=== PATIENT | female | born 1940 | race Hispanic/Latino ===

== ENCOUNTER 2018-10-21 09:54 | Inpatient (IN) ==
[2018-10-21] MEDS ORDERED: NARCAN ONE (10:36)
[2018-10-21] MEDS ORDERED: NS 1,000 ML ONE (10:49)
[2018-10-21 12:07] LABS: EOS# 0.05 X1000 (0.0-0.7); EOS% 0.7 % (0.0-10.0); HEMATOCRIT 18.1 % (37.0-47.0); HEMOGLOBIN 5.6 g/dL (12.0-16.0); IMM GRAN# 0.03 X1000 (0.0-0.04); IMM GRAN% 0.4 % (0.0-0.5); LYMPH# 0.75 X1000 (1.2-3.4); LYMPH% 10.2 % (20.5-51.1); MCH 22.6 PG (27-31); MCHC 30.9 g/dL (33-37); MONO# 0.29 X1000 (0.11-0.59); MONO% 3.9 % (1.7-9.3); MPV 9.8 FL (7.4-10.4); NEUT# 6.25 X1000 (1.4-6.5); NEUT% 84.8 % (42.2-75.2); PLT 353 X1000 (130-400); RBC 2.48 XMIL (4.2-5.4); WBC 7.37 X1000 (4.8-10.8)
--- NOTE | 2018-10-21 12:32 | Diag Imaging Result Doc PS360 ---
EXAM: CT HEAD/C-SPINE W/O CONTRAST 10/21/2018 HISTORY: fall, syncope TECHNIQUE: This exam was performed using automated exposure control, adjustment of mA or kV according to patient size, and/or use of iterative reconstruction technique. COMMENT: There is no evidence of mass, shift, abnormal extra-axial fluid collection, or hydrocephalus. There are no previous studies. The calvarium is intact. Cervical spine: There is no evidence of acute fracture or subluxation. There is mild degenerative disc disease at C5-6 and C6-7. The facets are aligned bilaterally. There are calcifications in the carotid arteries and the right brachiocephalic. IMPRESSION: No evidence of acute disease. Electronically signed by Popeye Fishman 10/21/2018 12:30 PM
--- NOTE | 2018-10-21 12:42 | Diag Imaging Result Doc PS360 ---
EXAM: CHEST-PORTABLE INDICATION: syncope TECHNIQUE: One view COMPARISON: None. FINDINGS: There is mild interstitial thickening throughout both lungs that is probably chronic. There is no discrete pleural fluid collection or pneumothorax. The cardiac silhouette appears somewhat prominent and there may be mild pulmonary venous congestion. IMPRESSION: 1.Mild cardiomegaly and questionable mild pulmonary venous congestion. 2.Mild diffuse interstitial thickening that is probably chronic. Electronically signed by Elier Iglesias 10/21/2018 12:40 PM
[2018-10-21 13:02] LABS: URINE SOURCE CLEAN CATCH
[2018-10-21 13:17] LABS: BILIRUBIN URINE NEGATIVE (NEGATIVE); BLOOD URINE SMALL (NEGATIVE); COLOR YELLOW; GLUCOSE URINE 100 mg/dL (NEGATIVE); KETONE URINE NEGATIVE (NEGATIVE); LEUKOCYTES URINE NEGATIVE (NEGATIVE); NITRITE URINE NEGATIVE (NEGATIVE); PROTEIN URINE 600 mg/dL (NEGATIVE); SP GRAVITY URINE 1.011; TURBIDITY URINE HAZY (CLEAR); UROBILINOGEN URINE NORMAL (NORMAL)
[2018-10-21 13:33] LABS: UR AMPHETAMINES QUAL NONE DETECTED (NONE DETECT); UR BARBITUATES QUAL NONE DETECTED (NONE DETECT); UR BENZODIAZEPIN QUAL NONE DETECTED (NONE DETECT); UR CANNABINOIDS QUAL NONE DETECTED (NONE DETECT); UR COCAINE QUAL NONE DETECTED (NONE DETECT); UR EPITHELIAL CELLS >10 /HPF (<10); UR METHADONE QUAL NONE DETECTED (NONE DETECT); UR OPIATES QUAL NONE DETECTED (NONE DETECT); UR OXYCODONE QUAL PRESUMPTIVE POSITIVE (NONE DETECT); UR PCP QUAL NONE DETECTED (NONE DETECT); URINE BACTERIA NEGATIVE /HPF; URINE RBC <10 /HPF (<10)
[2018-10-21 13:44] LABS: AGAP 11; BUN 63 mg/dL (8-22); CHLORIDE 100 mmol/L (98-107); COSMO 272; CREATININE 5.7 mg/dL (0.5-0.9); ESTIMATED GFR 7; GLUCOSE 109 mg/dL (70-104); POTASSIUM 5.9 mmol/L (3.5-5.1); SODIUM 126 mmol/L (136-145); TCO2 15 mmol/L (25-35)
[2018-10-21 13:45] LABS: ALB/GLOB RATIO 0.9; ALBUMIN 2.1 g/dL (3.5-5.0); ALKALINE PHOSPHATASE 134 U/L (32-104); AMYLASE 54 U/L (20-200); GOT 25 U/L (10-30); GPT 18 U/L (10-36); LIPASE 131 U/L (13-60); TOTAL BILIRUBIN < 0.15 mg/dL (0.20-1.00); TOTAL PROTEIN 4.4 g/dL (6.3-8.3)
--- NOTE | 2018-10-21 13:48 | ED EKG INTERP ---
This chart was entered by Marlen Iglesias Scribe, acting as scribe for Aditi Mack MD. EKG Interpretation - EKG Time of EKG reading by physician:: 10:20 EKG Read and Signed by:: Aditi Mack EKG Interpretation (*Must complete 3 of following elements*): Abnormal Rate: 52 Rhythm: NSR Bradycardia CO Interval: normal ST Wave: non-specific ST changes Attestation - Physician/ RANJAN Attestation The physician spent face to face time with patient:: Yes Advanced Practice Provider documentation review:: Supervising physician onsite and consulted in the evaluation and care of this patient. The physician did have a face to face encounter with the patient. This chart was documented by the indicated scribe, (Marlen Iglesias Scribe) and accurately reflects the services I performed and decisions made by me, Aditi Mack MD, as attested by the provider's signature.
--- NOTE | 2018-10-21 13:48 | PROVIDER DOCUMENTATION ---
This chart was entered by Marlen Iglesias Scribe, acting as scribe for Aditi Mack MD. HPI-General Adult - General Chief Complaint: Fall Stated Complaint: FALL/HOME HURTS ALL OVER Time Seen by Provider: 10/21/18 10:25 Source: patient Allergies/Adverse Reactions: Patient Allergies Allergy/AdvReac Type Severity Reaction Status Date / Time No Known Allergies Allergy Verified 10/21/18 11:03 Home Medications: Home Medication List Medication Instructions Recorded Confirmed Last Taken Type Cephalexin 500 mg PO TID 10/21/18 10/21/18 10/21/18 07:40 History Labetalol HCl 200 mg PO BID 10/21/18 10/21/18 10/21/18 08:00 History Minoxidil 5 mg PO BID 10/21/18 10/21/18 10/20/18 08:00 History Oxycodone HCl 5 mg PO Q6H PRN PRN 10/21/18 10/21/18 10/20/18 20:00 History Ranitidine [Zantac] 150 mg PO BID 10/21/18 10/21/18 Unknown History - History of Present Illness -Gen Adult Nature of Presenting Problems: 77 yof presents to ed w/family w/ co fell today while trying to get ready to go to drAmy office. pt has been dealing w/swelling all over body and sob. pt is complaining her head hurts and has a scab on left arm and bruising on left arm and above elbow. pt has been on new medications since thursday (lasix, ranitidine , minodixil, cephalexin, labetalol, and oxycodone. pts blood pressure and heart rate are low coming into ed. Location of Pain/Injury: reports: head, upper extremity (left forearm) Pain Radiation: reports: no radiation Quality of Pain: reports: aching Severity: reports: mild Onset/Duration: reports: this morning Timing: reports: still present Context/Activities at Onset: reports: light activity Modifying Factors: improves with: nothing Associated Symptoms: reports: diarrhea, nausea, shortness of breath, vomiting, weakness Similar Symptoms Previously?: Yes Recently seen or treated by another doctor?: No Review of Systems - Adult - REVIEW OF SYSTEMS - ADULT ROS:: ROS per family Constitutional: reports: no symptoms reported Eyes: reports: no symptoms reported Ears, Nose, Mouth & Throat: reports: no symptoms reported Cardiovascular: reports: no symptoms reported Respiratory: reports: see HPI, shortness of breath. denies: cough, dyspnea on exertion, excessive sputum production Gastrointestinal: reports: diarrhea, nausea, vomiting. denies: abdominal pain Genitourinary: reports: no symptoms reported Musculoskeletal: reports: no symptoms reported Integumentary: reports: see HPI, other (skin tear on left arm) Neurological: reports: no symptoms reported Psychiatric: reports: no symptoms reported Endocrine: reports: no symptoms reported Hematologic/Lymphatic: reports: see HPI, other (brusing left arm) Allergic/Immunologic: reports: no symptoms reported All Other Systems: Reviewed and Negative Past History - Adult - PAST MEDICAL HISTORY-ADULT Review of Records: reports: Old Records Reviewed, Nursing Assessment Review, Medications Reviewed, Social history reviewed & non-contributory. Major Childhood Illnesses: reports: denies history Cardiovascular: reports: denies history Respiratory: reports: denies history Gastrointestinal: reports: denies history Obstetrical/Gynecological: reports: denies history Genitourinary: reports: denies history Musculoskeletal: reports: denies history Neurological: reports: denies history Endocrine/Immune: reports: denies history Other Conditions: reports: denies history - PRIOR SURGERIES/PROCEDURES Surgical/Procedure History: reports: reviewed, not pertinent - IMMUNIZATION STATUS Childhood Immunizations: See Nurse Assessment Flu Vaccine: See Nurse Assessment - FAMILY HISTORY Family History: reviewed, not pertinent - SOCIAL HISTORY Smoking: denies Substance Use: denies Physical Exam-General - PHYSICAL EXAM-ADULT Initial Vital Signs Reviewed: Yes - CONSTITUTIONAL General Appearance: mild distress, slow to respond, other (moaning) - EYES Eyes: PERRL/EOMI - HEAD, EARS, NOSE, MOUTH & THROAT HENMT: normocephalic/atraumatic, moist mucous membranes, normal ENT inspection - NECK Neck: non-tender, full range of motion, supple - RESPIRATORY Respiratory: chest non-tender, lungs clear, normal breath sounds - CARDIOVASCULAR Cardiovascular: no edema, no murmur, bradycardia. negative: regular rate, rhythm, tachycardia, diastolic murmur, systolic murmur - GASTROINTESTINAL (ABDOMEN) Abdominal Exam: normal bowel sounds, soft, tenderness (mild generalized) - LYMPHATIC Lymphatic: no adenopathy - MUSCULOSKELETAL Extremity: normal range of motion, non-tender, other (skin tear to left forearm. 2 + pitting edema to bilateral lower extremities) - SKIN Integumentary: normal color, normal turgor, warm/dry, ecchymosis (left arm), other (skin tear to left forearm.). negative: blanching, cyanosis, rash - NEUROLOGIC Neurologic: other (unable to assess per patient's condition) - PSYCHIATRIC Psych/Mental Status: other (slow to respond) Progress - PLAN OF CARE/RESULTS Progress/Plan/Lab Results: Vital Signs - 8 hr 10/21/18 10:03 Temperature 97.7 F Pulse Rate 49 L Respiratory Rate 20 Blood Pressure 61/26 O2 Sat by Pulse Oximetry 97 Orders Category Date Time Status 0.9% Sodium Chloride Inj [Ns] 1,000 ml Med 10/21/18 10:49 Discontinued .ROUTE As Directed Naloxone [Narcan] Med 10/21/18 10:36 Discontinued 0.4 mg .ROUTE .STK-MED ONE Laboratory Tests 10/21/18 10/21/18 10/21/18 10:25 10:25 10:25 WBC 7.37 RBC 2.48 L Hgb 5.6 L* Hct 18.1 L MCV 73.0 L MCH 22.6 L MCHC 30.9 L RDW Std Deviation 17.0 H Plt Count 353 MPV 9.8 Immature Gran % (Auto) 0.4 Neut % (Auto) 84.8 H Lymph % (Auto) 10.2 L Dickson % (Auto) 3.9 Eos % (Auto) 0.7 Baso % (Auto) 0.0 Immature Gran # (Auto) 0.03 Neut # (Auto) 6.25 Lymph # (Auto) 0.75 L Dickson # (Auto) 0.29 Eos # (Auto) 0.05 Baso # (Auto) 0.00 Sodium 126 L Potassium 5.9 H Chloride 100 Carbon Dioxide 15 L Anion Gap 11 BUN 63 H Creatinine 5.7 H Estimated GFR/1.73 m2 7 BUN/Creatinine Ratio 11 Glucose 109 H Calculated Osmolality 272 Total Bilirubin < 0.15 L AST 25 ALT 18 Alkaline Phosphatase 134 H Troponin T Gly-Z-Xhchyecjlyr Pept 70033 H Total Protein 4.4 L Albumin 2.1 L Globulin 2.3 Albumin/Globulin Ratio 0.9 Amylase 54 Lipase 131 H Urine Source Urine Color Urine Turbidity Urine pH Ur Specific [place] Urine Protein Ur Glucose (Stick) Ur Ketones (Stick) Urine Blood Urine Nitrite Urine Bilirubin Urobilinogen Dipstick Urine Leukocytes Urine WBC (Auto) Urine RBC (Auto) U Epithel Cells (Auto) Urine Bacteria (Auto) Urine Opiates Screen Ur Oxycodone Screen Ur Methadone, Qual Ur Barbiturates Screen Ur Phencyclidine Scrn Ur Amphetamines Screen U Benzodiazepines Scrn Urine Cocaine Screen U Cannabinoids Screen 10/21/18 10/21/18 10/21/18 10:25 12:55 12:55 WBC RBC Hgb Hct MCV MCH MCHC RDW Std Deviation Plt Count MPV Immature Gran % (Auto) Neut % (Auto) Lymph % (Auto) Dickson % (Auto) Eos % (Auto) Baso % (Auto) Immature Gran # (Auto) Neut # (Auto) Lymph # (Auto) Dickson # (Auto) Eos # (Auto) Baso # (Auto) Sodium Potassium Chloride Carbon Dioxide Anion Gap BUN Creatinine Estimated GFR/1.73 m2 BUN/Creatinine Ratio Glucose Calculated Osmolality Total Bilirubin AST ALT Alkaline Phosphatase Troponin T < 0.010 Xve-P-Hepqaahjlnh Pept Total Protein Albumin Globulin Albumin/Globulin Ratio Amylase Lipase Urine Source CLEAN CATCH Urine Color YELLOW Urine Turbidity HAZY Urine pH 6.0 Ur Specific [place] 1.011 Urine Protein 600 A Ur Glucose (Stick) 100 A Ur Ketones (Stick) NEGATIVE Urine Blood SMALL A Urine Nitrite NEGATIVE Urine Bilirubin NEGATIVE Urobilinogen Dipstick NORMAL Urine Leukocytes NEGATIVE Urine WBC (Auto) 10-20 A Urine RBC (Auto) <10 U Epithel Cells (Auto) >10 A Urine Bacteria (Auto) NEGATIVE Urine Opiates Screen NONE DETECTED Ur Oxycodone Screen PRESUMPTIVE POSITIVE A Ur Methadone, Qual NONE DETECTED Ur Barbiturates Screen NONE DETECTED Ur Phencyclidine Scrn NONE DETECTED Ur Amphetamines Screen NONE DETECTED U Benzodiazepines Scrn NONE DETECTED Urine Cocaine Screen NONE DETECTED U Cannabinoids Screen NONE DETECTED Patient with multiple lab abnormalities. She was initially hypotensive and given some narcan as she just started Oxy, labetalol, and lasix. She was given IV bolus which helped her BP and it continued to improve. She also has a new Cr to 5.7, negative troponin, hypocalcemia, acute anemia requiring transfusion and elevated BNP to 14k. She has some hyponatremia and hyperkalemia. I spoke to Dr Castellanos who came down to see her and he will see her in consult. He wanted her to be transfused first before we correct a lot of her electrolyte abnormalities. He stated he will order Lasix for between the units. Spoke to hospitalist who accepted patient for admission. They will place further orders. Result Diagrams: 10/21/18 14:25 10/21/18 10:25 - XRAY 1 XRAY Study: Chest Impression: See EMR Report ( EXAM: CHEST-PORTABLE INDICATION: syncope TECHNIQUE: One view COMPARISON: None. FINDINGS: There is mild interstitial thickening throughout both lungs that is probably chronic. There is no discrete pleural fluid collection or pneumothorax. The cardiac silhouette appears somewhat prominent and there may be mild pulmonary venous congestion. IMPRESSION: 1.Mild cardiomegaly and questionable mild pulmonary venous congestion. 2.Mild diffuse interstitial thickening that is probably chronic. Electronically signed by Elier Iglesias 10/21/2018 12:40 PM 10/21/18 1240 Interpreting Physician: Elier Iglesias MD Dictated Date/Time: 10/21/18 1237 cc: Aditi Mack MD; Wei Davenport MD) - CT/MRI 1 CT Study: Cervical Spine, Head Impression: See EMR Report ( EXAM: CT HEAD/C-SPINE W/O CONTRAST 10/21/2018 HISTORY: fall, syncope TECHNIQUE: This exam was performed using automated exposure control, adjustment of mA or kV according to patient size, and/or use of iterative reconstruction technique. COMMENT: There is no evidence of mass, shift, abnormal extra-axial fluid collection, or hydrocephalus. There are no previous studies. The calvarium is intact. Cervical spine: There is no evidence of acute fracture or subluxation. There is mild degenerative disc disease at C5-6 and C6-7. The facets are aligned bilaterally. There are calcifications in the carotid arteries and the right brachiocephalic. IMPRESSION: No evidence of acute disease. Electronically signed by Popeye Fishman 10/21/2018 12:30 PM 10/21/18 1230 Interpreting Physician: Popeye Fishman MD Dictated Date/Time: 10/21/18 1226 cc: Aditi Mack MD ; Wei Davenport MD) - CONSULTS/PCP/HOSPITALIST Notification #1 *Consult/PCP/Hospitalist*: Gladish Time Discussed: 14:42 Reason/Comments: Discussed abnormal lab findings Consult Disposition: Will see in ED #2 Consult: Komal Time Discussed: 15:34 Reason/Comments: consulted with Komal about patient Consult Disposition: Will see in ED, Admit Departure - Departure Date of Disposition Decision: 10/21/18 Time of Disposition Decision: 15:34 DIAGNOSIS: Syncope, CHF (congestive heart failure), GUY (acute kidney injury), Hypocalcemia, Acute anemia, Weakness, Hyponatremia, Hyperkalemia, Nausea vomiting and diarrhea Disposition: ADMITTED INPATIENT 09 Certified Medical Emergency: Emergent Condition: Stable - Critical Care Note This patient required my direct & personal management of CC.: Yes Total Time (mins): 74 Critical Care Statement: This patient required my direct personal management to treat or rule out processes, the absence of which, could potentiallly result in sudden, clinically significant life or limb threatening deterioration. Attestation - Physician/ RANJAN Attestation Patient care was provided by Advanced Practice Provider:: No The physician spent face to face time with patient:: Yes Advanced Practice Provider documentation review:: Supervising physician onsite and consulted in the evaluation and care of this patient. The physician did have a face to face encounter with the patient. This chart was documented by the indicated scribe, (Marlen Iglesias, Dung) and accurately reflects the services I performed and decisions made by me, Aditi Mack MD, as attested by the provider's signature.
[2018-10-21 14:00] LABS: URINE SMALL ROUND CELLS NONE SEEN
--- NOTE | 2018-10-21 14:00 | EKG Report ---
Test Performed on : 10/21/2018 10:16:22 AM Test Reason : ED. NO EKG ORDER FOR MUSE Blood Pressure : / mmHG Vent. Rate : 052 BPM Atrial Rate : 052 BPM P-R Int : 172 ms QRS Dur : 078 ms QT Int : 488 ms P-R-T Axes : 014 036 043 degrees QTc Int : 453 ms Sinus bradycardia. Nonspecific T wave abnormality Abnormal ECG No previous ECGs available Unconfirmed Result
[2018-10-21 15:13] LABS: HEMATOCRIT 21.3 % (37.0-47.0); HEMOGLOBIN 6.7 g/dL (12.0-16.0)
[2018-10-21 15:21] LABS: IRON SATURATION 8 %; TIBC 273 ug/dL; TOTAL IRON 21 ug/dL (49-151); UNBOUND IRON 252 ug/dL (112-346)
[2018-10-21 15:25] LABS: INR 0.87; PROTIME 12.6 Seconds (11.0-16.0)
[2018-10-21] MEDS ORDERED: SODIUM BICARBONATE 8.4% IV PUSH ONE (15:39)
[2018-10-21] MEDS: LASIX IV SCH (15:50)
[2018-10-21] MEDS: VELTASSA PO SCH ×2 (15:55→23:45)
--- NOTE | 2018-10-21 17:09 | NEPHROLOGY CONSULTATION ---
DATE: 10/21/2018 REASON FOR CONSULTATION: Chronic kidney disease, hyperkalemia, metabolic acidosis. HISTORY OF PRESENT ILLNESS: Ms. Carlson is a 77-year-old woman who has been seen on one occasion in the past by Dr. Cantu in our office. She has hypertension that has been poorly managed and resultant chronic kidney disease. The only laboratory data in our system is from 08/13/2018, at which time her creatinine was 3.8, and hemoglobin was 8.2. Blood pressure was in target at that time. She did not show for her initial new patient visit but was seen on the . She has been to the doctor daily at a local urgent care facility because of falling and weakness. She has been given medication, but they cannot really define what was given. She did receive antibiotics and oxycodone. Today she fell trying to get out of the car. She did not lose consciousness. No dizziness or other new symptoms. Because of this severe weakness, she came to the emergency room where she was evaluated. Her evaluation in the emergency room found her significantly hypotensive. Her initial blood pressure was 61/26. Repeat 113/46. She was evaluated using laboratory data which disclosed potassium of 5.9, creatinine of 5.7, and hemoglobin of 5.6. On these bases, she is being admitted to the hospital. PAST MEDICAL HISTORY: As above. HOME MEDICATIONS: Include cephalexin, labetalol, minoxidil, oxycodone, ranitidine. ALLERGIES: None listed. Social history, family history, and review of systems do not add further information. PHYSICAL EXAMINATION: Vital Signs: Blood pressure 113/46, heart rate 73, respirations 14, afebrile. General: No acute distress. Skin: Warm and dry. Eyes: Conjunctivae are pink. Neck: Neck veins not appreciated. Mouth: Oropharynx is dry. Heart: Regular. Lungs: Equal. No crackles. Abdomen: Soft, nontender. Bowel sounds present. Extremities: Have 1+ edema. No clubbing or cyanosis. IMPRESSION: Chronic kidney disease, stage 5, with profound anemia, hypotension, hyperkalemia, metabolic acidosis, and volume overload. I have ordered furosemide 200 mg IV q.12 h. for 3 doses and 2 units packed red blood cells. I have also ordered Veltassa to address her potassium and 1 amp of sodium bicarbonate. I will have Echo come and do quick check to rule out pericardial effusion, as she is taking minoxidil and has uremia and has a somewhat enlarged heart shadow on her chest x-ray. Further recommendations to follow. cc: Marques Castellanos MD
--- NOTE | 2018-10-21 18:04 | HISTORY AND PHYSICAL ---
CHIEF COMPLAINT: Syncope. PRIMARY CARE PHYSICIAN: Wei Davenport MD HISTORY OF PRESENT ILLNESS: This is a 77-year-old female, who was brought to the emergency department because at home she passed out. Patient reports that 3 months ago she was having problems controlling hypertension so her primary care doctor order some blood tests where they found out for first time an elevated creatinine so she was supposed to be seen by field technician Dr. Cantu in a couple weeks. She went to see her doctor last time last Thursday because she was having some problems with elevated blood pressure, some sore throat, and some neck pain so she was given cephalexin, labetalol, minoxidil, oxycodone, and ranitidine. Today she reports feeling a little bit dizzy. They were about to go in to see her primary care doctor when she passed out at home. She reports that she was feeling dizzy and she did not remember anything and according to family who was at bedside, she was unconscious for less than a minute. The patient was complaining of headaches so she was given oxycodone for that. The patient was feeling progressively weaker. Here, upon ER evaluation, she was found to be hypotensive with systolic blood pressure in the range of 60. Her hemoglobin was very low at 5.6 so she is going to be admitted for further evaluation and treatment. PAST MEDICAL HISTORY: 1. Uncontrolled hypertension. 2. Recent chronic kidney disease, diagnosed 3 months ago. ALLERGIES: No known drug allergies. PAST SURGICAL HISTORY: None. FAMILY HISTORY: Noncontributory. REVIEW OF SYSTEMS: Eleven systems were reviewed, and all symptoms are related to H P. PHYSICAL EXAMINATION: VITAL SIGNS: Temperature 97.7 degrees, heart rate 49, respiratory rate 20, blood pressure 161/26 and that was on admission, but upon my examination, was 125/62, O2 saturation 97 % on room air. GENERAL: This is a chronically ill-looking 77-year-old female, lying in bed, in no acute distress. HEENT: Head is normocephalic and atraumatic. Pupils equally round and reactive to light and accommodation. Anicteric sclerae. [place] conjunctivae. Mucous membranes dry. NECK: No JVD noted. No carotid bruits. No lymphadenopathy. No thyromegaly. CARDIOVASCULAR: S1, S2 heard. No murmurs, gallops, or rubs. Regular rate and rhythm. RESPIRATORY: Clear bilaterally to auscultation. No work of breathing or using accessory muscles. ABDOMEN: Soft, nontender to palpation. There is an umbilical hernia noted, not incarcerated. Bowel sounds present. No organomegaly. EXTREMITIES: No clubbing, cyanosis, or edema. Peripheral pulses present in both legs. NEUROLOGICAL: The patient is alert and oriented x3. Moves 4 extremities. LABORATORY DATA: White cell count 5.37, hemoglobin of 5.6 and was repeated at 4 :25 and it was 6.7. Sodium 136, potassium 5.9, chloride 100, bicarbonate 15, BUN 63, creatinine 5.7, calcium 7.0. Iron 21. Total bilirubin 0.15. Negative troponin. UDS positive for oxycodone. ASSESSMENT AND PLAN: 1. Syncope, multifactorial, and severe anemia of 5.6 plus hypotension plays an important role in this problem. At this point, for suspicion for GI bleeding, we are going to consult Gastroenterology. We are going to check a CT abdomen and pelvis, and we will go from there. 2. Anemia of chronic disease. We are going to check CBC daily. We have done iron studies that are still pending at time of my dictation. 3. Chronic kidney disease. The patient has been diagnosed recently with chronic kidney disease. Those labs had been done 3 months ago. Patient reports she had not had any blood tests in years, at least 12, while she is living here. We are going to consult Dr. Castellanos, and we know that this patient is having metabolic acidosis secondary to chronic kidney disease. We will leave to him the management of that condition. 4. Because this patient has uncontrolled hypertension and she was told that she had a big heart, we are going to check an echocardiogram. We will go from there. Further recommendations to follow according to the clinical situation of the patient. cc: Bright Pena MD MTDD
[2018-10-21] MEDS ORDERED: NS 250 ML ONE (18:32)
--- NOTE | 2018-10-21 19:28 | Diag Imaging Result Doc PS360 ---
EXAM: US RENAL 2 (RETROPER) COMPLETE HISTORY: ckd TECHNIQUE: Renal ultrasound COMPARISON: None. FINDINGS: The right kidney measures only 7.1 x 4.3 x 3.6 cm. There is increased renal echotexture and cortical thickness. No stone or hydronephrosis. No renal mass. The left kidney is not identified. There is a Santos in the urinary bladder. There appears to be free fluid in the lower abdomen. IMPRESSION: Small hyperechoic right kidney consistent with medical renal disease. Electronically signed by Alfonso Mason 10/21/2018 7:26 PM
[2018-10-21] MEDS: PROTONIX IV SCH (19:45)
--- NOTE | 2018-10-21 21:39 | Diag Imaging Result Doc PS360 ---
EXAM: CT THORAX/ABD/PELVIS W/O CON HISTORY: syncope, suspected GI bleeding, ckd TECHNIQUE: 1. CT chest without contrast 2. CT abdomen and pelvis without contrast COMPARISON: None. FINDINGS: Chest: There is a small to moderate-sized left-sided pleural effusion measuring 3.1 cm posteriorly and inferiorly in the midline and a smaller right effusion measuring 2.8 cm. No cardiomegaly. No thoracic aortic aneurysm. No enlarged lymph nodes. There is basilar atelectasis. No consolidation. No bronchiectasis. Abdomen and pelvis: No hepatic normality identified on this noncontrasted exam. No calcified gallstones or adjacent inflammation. Spleen is small. Normal pancreas and adrenal glands. The kidneys are mildly atrophic. No renal stones. No hydronephrosis. No bowel obstruction. No abscess. There is a Santos catheter in urinary bladder. A small to moderate amount of free fluid in the lower abdomen and pelvis. Prominent body wall edema. Fluid fills a periumbilical hernia. The uterus is small. IMPRESSION: Chest: Small pleural effusions with basilar atelectasis Abdomen and pelvis: Small amount of ascites with body wall edema This exam was performed using automated exposure control, adjustment of mA or kV according to patient size, and/or use of iterative reconstruction technique. Electronically signed by Alfonso Mason 10/21/2018 9:37 PM
--- NOTE | 2018-10-21 22:33 | ECHO REPORT ---
ORDER DATE: 10/21/2018 SUMMARY: 1. Limited 2-dimensional echocardiography study performed to evaluate for pericardial effusion. Acoustic window quality is fair. 2. The aortic valve is trileaflet and opens normally on 2-dimensional images. Mitral and tricuspid valves are without evidence of structural abnormality. Pulmonic valve is not well- demonstrated. The aortic root is normal size. 3. Normal left ventricular dimensions suggested. The estimated left ventricular ejection fraction appears to be at least 60%. No regional wall motion abnormality is evident. Left atrium, right atrium, right ventricle are grossly normal in size, with grossly preserved right ventricular systolic function. 4. No pericardial effusion. 5. Inferior vena cava not well-demonstrated. cc: MD Marques Resendiz MD
[2018-10-22] MEDS: PROTONIX IV SCH ×2 (06:00→18:06)
[2018-10-22 06:22] LABS: EOS# 0.03 X1000 (0.0-0.7); EOS% 0.4 % (0.0-10.0); LYMPH# 0.63 X1000 (1.2-3.4); LYMPH% 8.3 % (20.5-51.1); MCH 24.7 PG (27-31); MCHC 32.1 g/dL (33-37); MCV 76.7 FL (81-99); MONO# 0.41 X1000 (0.11-0.59); MONO% 5.4 % (1.7-9.3); NEUT# 6.52 X1000 (1.4-6.5); NEUT% 85.9 % (42.2-75.2); PLT 338 X1000 (130-400); RBC 3.65 XMIL (4.2-5.4); RDW 19.3 % (11.5-14.5); WBC 7.59 X1000 (4.8-10.8)
[2018-10-22] MEDS: LASIX IV SCH ×2 (06:30→15:54)
[2018-10-22 06:43] LABS: CALCIUM 7.4 mg/dL (8.8-10.2); CREATININE 6.2 mg/dL (0.5-0.9)
[2018-10-22] MEDS ORDERED: MORPHINE IV PRN (07:47)
[2018-10-22] MEDS: VELTASSA PO SCH (07:55)
[2018-10-22] MEDS ORDERED: VENOFER 500 MG in NS 250 ML IV ONE (08:25)
--- NOTE | 2018-10-22 14:29 | ECHO REPORT ---
ORDER DATE: 10/21/2018 ECHOCARDIOGRAPHIC MEASUREMENTS: 1. Interventricular septum 1.3. 2. Left ventricular posterior wall 1.3. 3. Diastolic diameter 4.2. 4. Left ventricular systolic diameter 2.9. 5. Left atrium 4.2. 6. Aorta 2.7. SUMMARY: 1. Aortic valve leaflets are trileaflet. 2. Mitral valve was normal. 3. Tricuspid valve was normal. 4. Pulmonic valve was normal. There is mild pulmonary regurgitation. 5. Mild tricuspid regurgitation. Peak velocity across the tricuspid valve was 2.6 m/sec. 6. Pulmonary artery systolic pressure 37 to 40 mmHg. 7. There is mild left atrial enlargement. 8. There is no aortic stenosis. 9. Aortic valve leaflets are trileaflet. 10. There is mild aortic regurgitation 11. There is mild mitral regurgitation. 12. Normal left ventricular cavity size. There is mild concentric left ventricular hypertrophy. Estimated ejection fraction of 60% to 65%. 13. There is no pericardial effusion or obvious intracardiac mass or thrombus seen. cc: MD Bright Cid MD
[2018-10-22] MEDS ORDERED: DILAUDID IV PRN (15:20)
--- NOTE | 2018-10-22 16:52 | PROGRESS NOTE ---
DATE: 10/22/2018 SUBJECTIVE: The patient reports severe abdominal pain around the umbilical hernia she had. She reports that even with morphine the pain is really difficult to control. Denies any other complaints. OBJECTIVE: Vital Signs: Temperature 98.0 degrees, heart rate 96, respiratory rate 18, blood pressure is 150/76, O2 saturation is 99% 2 L nasal cannula. General: This is a chronically ill- looking 77-year-old [place] female lying in bed in no acute distress. HEENT: Head is normocephalic and atraumatic. Poor dentition. Mucous membranes dry. Pale conjunctivae. Neck: No JVD noted. No carotid bruits. No lymphadenopathy. No thyromegaly. Cardiovascular: S1 and S2 heard. No murmurs, gallops or rubs. Regular rate and rhythm. Respiratory: Minimal crackles in both pulmonary bases. The patient is not using any accessory muscles or having work of breathing. Abdomen: The abdomen is very tender to palpation around the umbilical area. There is an umbilical hernia with tenderness to palpation all over the abdomen, but mostly around the hernia. There was a bulging lump in the abdomen compatible with hernia that we tried to move back into place, but we were not able to. No signs of peritoneal irritation though. Extremities: Less swelling in both lower extremities. Neurological: The patient is alert and oriented x3. Moves all 4 extremities. LABORATORY DATA: White cell count 7.59, hemoglobin 9.0, hematocrit 28.0, platelets 338,000. Sodium 132, creatinine 6.2, calcium 7.4. ASSESSMENT AND PLAN: 1. Syncope, multifactorial. That has been secondary to severe anemia at 5.6 plus hypotension. At this point the patient is much better, blood pressure is under control. After we have transfused 2 units of blood the hemoglobin has come up to 9.0. At this point we will continue to monitor this patient closely. 2. Chronic kidney disease stage 5. Dr. Castellanos has evaluated this patient. Also we had ordered at admission a renal ultrasound which indicates signs of medical renal disease because the right kidney is small hyperechoic. We have talked with Dr. Castellanos and he thinks that with this chronic kidney disease stage 5 she may need dialysis down the road. She is not a candidate now, but she will eventually. We informed the patient about it and without any medical insurance it is going to be very difficult for the patient to obtain the dialysis she needs. At this point as we mentioned before, we will continue with medical treatment. She is not a candidate for dialysis yet. We will continue to monitor. 3. Anemia of chronic disease. Much better after 2 units of blood transfusion, the hemoglobin is 9.0. We will continue to monitor. 4. Possible incarcerated umbilical hernia. The patient started complaining from yesterday with severe abdominal pain in the umbilical area. The patient was supposed to be seen by Dr. Rivas in the office for this condition, but I think considering that I am not able to move back the hernia, and worsening abdominal pain suspicious for incarcerated hernia, we will consult General Surgery. We will go from there. 5. Uncontrolled hypertension. Blood pressure now is under control. The patient is not on intravenous fluids, actually the patient is on furosemide and we will continue with the same management. We will adjust the medications accordingly. 6. Disposition. We will continue to monitor this patient closely. cc: Bright Pena MD
--- NOTE | 2018-10-22 17:17 | NEPHROLOGY PROGRESS NOTE ---
DATE: 10/22/2018 SUBJECTIVE: She is lying in bed. She states she feels better. No shortness of breath. OBJECTIVE: Vital Signs: Blood pressure 141/59, heart rate 84, respirations 14. Afebrile. Intake 1.7 L. Output 200 mL. General: No acute distress. Skin: Warm and dry. Neck: Neck veins are not visible. Heart: Regular. No gallops. Lungs: Equal. No crackles. Abdomen: Soft, nontender. Bowel sounds present. Extremities: With minimal edema. No clubbing or cyanosis. IMPRESSION: Chronic kidney disease stage 5. No improvement. Her BUN is 57. She has no absolute indications for dialysis at this time. From our perspective, though she would likely benefit from chronic dialysis, we do not have a facility where we can refer an undocumented patient. Our recommendation would be for her to return [place] in order to receive chronic care for this chronic condition. I discussed this with Dr. Mosqueda, who will in turn communicate the information to the patient in her [place] language. I recommended sodium bicarbonate 1300 mg b.i.d. She will receive her last dose of Veltassa this morning. She has been treated with a transfusion, and her hemoglobin is in a safe range at 9.0 today. cc: Marques Castellanos MD
--- NOTE | 2018-10-22 18:03 | CONSULTATION ---
DATE OF CONSULTATION: 10/22/2018 REASON FOR CONSULTATION: Severe anemia. HISTORY OF PRESENT ILLNESS: This is a 77-year-old female. Information is obtained from the granddaughter, who was at the bedside. The patient does not speak [place]. Granddaughter speaks enough [place] to understand and help with review of systems. Most of the information is obtained from the chart. Apparently, the patient has had some recent workup for kidney issues. She had been seen by Nephrology one time in their office. She had an initial workup in August that showed a creatinine of 3.8, and a hemoglobin of 8.2. The patient has had some increasing falls and weakness, along with dizziness and lightheadedness, and apparently had a syncopal episode. She was brought in to the emergency room for evaluation, was found to be hypotensive, and also severely anemic. Hemoglobin and hematocrit on admission were 5.6, and 18.1. MCV 73.0. Potassium was 5.9, BUN 63, creatinine 5.7. She has reported some abdominal pain. Per granddaughter's translation, she has had an episode of vomiting at times. She had reported cough, with production of phlegm. She denies reflux or heartburn or dysphagia, and is not on any stomach medications. She had apparently had evaluation for an umbilical hernia, and had workup for possible surgery, which had to be postponed. Patient denied any visible blood in the stool or black stools. No reported constipation or diarrhea. She has never had an EGD or colonoscopy, per her report. PAST MEDICAL HISTORY: Hypertension, recently diagnosed kidney disease. She had seen Dr. Cantu for a workup. PAST SURGICAL HISTORY: None reported. ALLERGIES: No known drug allergies. MEDICATIONS: Cephalexin 500 mg 3 times a day, labetalol 200 mg twice a day, minoxidil 5 mg twice a day, oxycodone 5 mg every 6 hours as needed, Zantac 150 mg twice a day. REVIEW OF SYSTEMS: Per history of present illness. Information is obtained from the chart, and from about the granddaughter, who is at the bedside, and speaks adequate [place]. PHYSICAL EXAMINATION: Vital Signs: Temperature 98.0 degrees, pulse 91, respirations 16, blood pressure 150/76. General: Patient is awake and alert. She is in no acute distress. HEENT: Normocephalic, atraumatic. Pupils equal, round, reactive to light. Sclerae nonicteric. Cardiovascular: Regular rate and rhythm. Respiratory: Lung sounds essentially clear bilaterally. Abdomen: Soft. She has an umbilical hernia is noted. I believe she has had evaluation for surgery when appropriate. Extremities: No lower extremity edema noted. Pulses present bilaterally. Neurologically: Cranial nerves 2-12 grossly intact. Patient is awake, alert, oriented to person, place, and time. DIAGNOSTIC RESULTS: Laboratory: Hematology: Hemoglobin and hematocrit on admission were 5.6 and 18.1. The patient has had a blood transfusion and iron infusion. Her hemoglobin and hematocrit now are 9.0 and 28.0. MCV 76.7, platelets 338,000. Coagulation: Pro time 12.6 , INR 0.87. Chemistry: Sodium 132, potassium 5.0, chloride 103, CO2 15, BUN 57, creatinine 6.2, glucose 88. Iron 21, TIBC 273, percent saturation 8. Transferrin 190. Ferritin 18. Total bilirubin less than 0.15. AST 25, ALT 18, alkaline phosphatase 134. Vitamin B 12, 430. Folate 10.6. IMAGING STUDIES: Renal ultrasound showed small hyperechoic right kidney, consistent with medical renal disease. Abdominal pelvis CT scan without contrast showed small pleural effusions, with basilar atelectasis, small amount of ascites, with body wall edema. Head and cervical spine CT showed no evidence of acute disease. ASSESSMENT: 1. Syncopal episode. 2. Severe anemia. 3. Newly-diagnosed chronic kidney disease. Has had evaluation by Dr. Cantu. 4. Hypertension. PLAN: Continue to monitor hemoglobin and hematocrit. Transfuse further packed red blood cells as needed. Monitor for any signs of active bleeding. Once patient is stable enough and has had blood transfusions, and when appropriate, we will proceed with GI evaluation. Further plans will be made according to findings. Dr. Ramey has also seen and examined the patient. Will continue to follow. Further plans to be made as needed. Thank you for this consultation. Dictated by KAREN Dumont for Dony Ramey MD cc: KAREN hCerry MD [facility]
[2018-10-22] MEDS: ZOFRAN IV PRN (18:06)
[2018-10-23] MEDS: PROTONIX IV SCH ×2 (05:07→18:16)
[2018-10-23] MEDS: SODIUM CHLORIDE 0.9% INJ SCH (05:07)
[2018-10-23 07:20] LABS: EOS# 0.01 X1000 (0.0-0.7); EOS% 0.1 % (0.0-10.0); HEMATOCRIT 29.5 % (37.0-47.0); HEMOGLOBIN 9.6 g/dL (12.0-16.0); IMM GRAN# 0.02 X1000 (0.0-0.04); IMM GRAN% 0.2 % (0.0-0.5); LYMPH# 0.71 X1000 (1.2-3.4); LYMPH% 7.7 % (20.5-51.1); MCH 24.8 PG (27-31); MCHC 32.5 g/dL (33-37); MCV 76.2 FL (81-99); MONO# 0.75 X1000 (0.11-0.59); MONO% 8.1 % (1.7-9.3); MPV 9.7 FL (7.4-10.4); NEUT# 7.79 X1000 (1.4-6.5); NEUT% 83.9 % (42.2-75.2); PLT 351 X1000 (130-400); RBC 3.87 XMIL (4.2-5.4); RDW 18.5 % (11.5-14.5); WBC 9.28 X1000 (4.8-10.8)
[2018-10-23 07:40] LABS: CALCIUM 7.4 mg/dL (8.8-10.2); POTASSIUM 5.4 mmol/L (3.5-5.1)
[2018-10-23] MEDS: DILAUDID IV PRN ×3 (11:16→18:16)
[2018-10-23] MEDS: ZOFRAN IV PRN ×2 (11:18→15:24)
--- NOTE | 2018-10-23 15:26 | PROGRESS NOTE ---
DATE: 10/23/2018 SUBJECTIVE: The patient is in no acute distress. She has family at the bedside. She has received packed red blood cells. Hemoglobin and hematocrit today are 9.6 and 29.5. The patient does complain of abdominal pain. She has an umbilical hernia. The patient has had workup and had plans for surgery when able. She has also been seen by Nephrology. OBJECTIVE: Vital signs: Temperature is 98.4, pulse 98, respirations 18, blood pressure 150/75. General: The patient is awake and alert, no acute distress. Abdomen: Tender at the umbilical hernia site. DIAGNOSTIC DATA: Hematology shows WBC of 9.28, hemoglobin 9.6, hematocrit 29.5, MCV of 76.2, platelets 351. Chemistry shows sodium 126, potassium 5.4, chloride 97, CO2 is 14, BUN is 65, creatinine 6.0, glucose 90, calcium 7.4. ASSESSMENT AND PLAN: 1. Recent syncope. 2. Anemia. The patient has received packed red blood cells. 3. Chronic kidney disease. The patient has been seen by Nephrology. 4. Umbilical hernia. The patient has had evaluation. There was discussion about surgery. I believe she was unable to make the appointment with Dr. Rivas. [facility] to [facility] her here. 5. Hypertension. 6. Continue to monitor hemoglobin and hematocrit and monitor for any signs of active bleeding. Transfuse further packed red blood cells as needed. We will plan to proceed with an EGD and colonoscopy on Thursday for further evaluation. Further plans will be made according to findings. I have discussed this case with Dr. Ramey. I have discussed procedure and plans with the patient and family. Further plans will be made as needed. Thank you for this consultation. Dictated by KAREN Dumont for Dony Ramey MD cc: KAREN Cherry MD
--- NOTE | 2018-10-23 15:43 | PROGRESS NOTE ---
DATE: 10/23/2018 SUBJECTIVE: The patient reports feeling fine. Still mild to moderate abdominal pain noted around the umbilical area. OBJECTIVE: General: This is a chronically ill-looking, 77-year-old female, lying in bed in no acute distress. HEENT: Head is normocephalic, atraumatic. Good dentition. Neck: No JVD noted. No carotid bruits. No lymphadenopathy. Cardiovascular exam: S1, S2 heard. No murmurs, gallops, or rubs. Regular rate. Respiratory exam: Minimal crackles in both pulmonary bases. Patient not using any accessory muscles or having work of breathing. Abdomen: A little bit distended. Mild tenderness to palpation around the umbilical hernia; this is bulging along the abdomen. That is the hernia we tried to move out, but we were not able to. No signs of peritoneal irritation. Extremities: Less swelling in both lower extremities. Neurological exam: Patient alert and oriented x3. Moves 4 extremities. LABORATORY DATA: White cell count 9.28, hemoglobin 9.6, hematocrit 29.5, platelets 351. Sodium 136, potassium 5.4, creatinine 6.0, calcium 7.4. ASSESSMENT AND PLAN: 1. Syncope, multifactorial. No more episodes of syncope at this point. It was secondary to hypotension and severe anemia. Those are resolved now. 2. Chronic kidney disease stage V. Nephrology is following. Patient definitely will need dialysis soon, but not at this point. We will continue with medical management at this point. 3. Anemia of chronic disease. Hemoglobin is 9.6 after 2 units of blood. 4. Possible incarcerated umbilical hernia. General Surgery has been consulted. We will follow recommendations. 5. Uncontrolled hypertension. Actually blood pressure is good without any medication at this point we will continue with the same medications. DISPOSITION: GI has evaluated this patient and they are planning to do EGD tomorrow as a part of workup for anemia. If everything is fine, we will send this patient home. cc: Bright Pena MD
[2018-10-23] MEDS: VELTASSA PO SCH ×2 (16:24→23:31)
--- NOTE | 2018-10-23 17:07 | Carotid Study ---
DATE: 10/21/2018 PROCEDURE: Carotid duplex imaging. REFERRING PHYSICIAN: Panda. INTERPRETING PHYSICIAN: Alfonso. TECH: Lucas. INDICATIONS: Syncope. OBSERVED DATA RIGHT LEFT Brachial Blood Pressure Carotid Pulse Bruits: Carotid/Sub DIAGRAM OF ULTRASOUND IMAGING R L RIGHT INT EXT INT EXT LEFT Edwin (cm/s) Edwin (cm/s) Subclavian 108/0 Subclavian 144/0 CCA Proximal 71/9 CCA Proximal 76/8 CCA Distal 78/13 CCA Distal 87/14 Bulb 85/15 Bulb 56/8 ICA Proximal 68/12 ICA Proximal 69/18 ICA Mid 124/36 ICA Mid 87/25 ICA Distal 96/26 ICA Distal 90/18 ECA 119/11 ECA 90/11 Vertebral Antegrade, 67/14 Vertebral Antegrade, 76/24 ICA/CCA Ratio 1.6 ICA/CCA Ratio 1.0 % Stenosis 40-59% % Stenosis 0-39% PHYSICIAN INTERPRETATION: Minimal plaque is noted in the bulbs. Neither side produces stenosis of any consequence. Vessels are quite torturous. There is antegrade vertebral flow bilaterally. cc: MD Bright Lopez MD
[2018-10-23] MEDS: SODIUM BICARBONATE PO SCH (18:15)
--- NOTE | 2018-10-23 20:14 | GENERAL SURGERY CONSULTATION ---
DATE: 10/23/2018 HISTORY OF PRESENT ILLNESS: Ms. Carlson is 77 years old. Was brought to the emergency department because of passing out. She coincidentally was noted to have an umbilical hernia. The bump has been bothering her for about 3 months. It has been present for up to 20 years. She has chronic kidney disease. She also has uncontrolled hypertension. Medications currently include Dilaudid, Zofran, and Protonix. She was admitted with a hemoglobin of 6.7. She is scheduled for an EGD to look for a source of bleeding. Her creatinine is 6.0. MEDICATIONS: Noted. ALLERGIES: She has no known drug allergies. PREVIOUS SURGICAL HISTORY: None. FAMILY HISTORY: Not known. REVIEW OF SYSTEMS: As noted above. PHYSICAL EXAMINATION: Vital Signs: She is afebrile. Heart rate 98, blood pressure 150/75. Lungs: Clear. Heart: Regular rate and rhythm. Abdomen: Soft. She has an umbilical hernia that is reducible. Extremities: No peripheral edema. Neurologic: She is awake and alert. ASSESSMENT: Umbilical hernia that is reducible. This is not an emergency. It can be done electively. I will follow along. cc: Dante Hamilton MD
--- NOTE | 2018-10-23 21:03 | NEPHROLOGY PROGRESS NOTE ---
DATE: 10/23/2018 SUBJECTIVE: She is feeling well. She ate her lunch. No shortness of breath, nausea or vomiting. OBJECTIVE: Vital Signs: Blood pressure 150/75, heart rate 98, respiration 18, afebrile. General: No acute distress. Skin: Warm and dry. Eyes: Conjunctivae are pink. Neck: Neck veins are not distended. Heart: Regular. No rubs. Lungs: Equal. No crackles. Abdomen: Soft, nontender. Bowel sounds present. Extremities: No edema, clubbing or cyanosis. IMPRESSION: Chronic kidney disease stage 5. She does not have any absolute indications for dialysis. I will add sodium bicarbonate to her regimen. Her diet needs to be low potassium. I will give 1 more dose of Kayexalate. I again counseled the patient and family that we will monitor daily for her need for dialysis while she is an inpatient. After discharge, it would be to her advantage to return to her [place] country so that she can receive appropriate treatment for her renal failure. cc: Marques Castellanos MD
[2018-10-24] MEDS: VELTASSA PO SCH ×2 (06:17→07:47)
[2018-10-24] MEDS: PROTONIX IV SCH ×2 (06:17→17:31)
[2018-10-24 08:06] LABS: EOS# 0.12 X1000 (0.0-0.7); EOS% 1.3 % (0.0-10.0); HEMATOCRIT 27.6 % (37.0-47.0); IMM GRAN# 0.02 X1000 (0.0-0.04); IMM GRAN% 0.2 % (0.0-0.5); LYMPH# 1.04 X1000 (1.2-3.4); LYMPH% 11.4 % (20.5-51.1); MCHC 32.6 g/dL (33-37); MCV 76.7 FL (81-99); MONO% 9.9 % (1.7-9.3); MPV 9.8 FL (7.4-10.4); NEUT# 7.02 X1000 (1.4-6.5); NEUT% 77.2 % (42.2-75.2); PLT 335 X1000 (130-400); RDW 19.1 % (11.5-14.5)
--- NOTE | 2018-10-24 08:27 | GENERAL SURGERY PROGRESS NOTE ---
DATE: 10/24/2018 Ms. Carlson appears to have slept well last night. She is lying comfortably. I palpated her abdomen. Her hernia is easily reducible and she showed no tenderness. She is scheduled for an EGD tomorrow. Her hernia is a chronic problem. It is not incarcerated. There is no emergency or urgency about repairing this hernia. cc: Dante Hamilton MD
[2018-10-24 08:33] LABS: CALCIUM 7.2 mg/dL (8.8-10.2); CREATININE 6.9 mg/dL (0.5-0.9); POTASSIUM 4.4 mmol/L (3.5-5.1)
[2018-10-24] MEDS: SODIUM BICARBONATE PO SCH ×3 (08:34→17:35)
--- NOTE | 2018-10-24 12:48 | PROGRESS NOTE ---
DATE: 10/24/2018 SUBJECTIVE: Ms. Carlson is resting comfortably. In fact, she was sitting at the bedside. She did not complain of any GI symptoms. Has not noted any bright red blood per rectum or melena. She is tolerating a liquid diet well and felt better. Has not had any syncopal episodes. OBJECTIVE: Vital Signs: Temperature 97.8 degrees, pulse 72 per minute, breathing 16, blood pressure is 114/46. Abdomen: Full, soft, nontender. Bowel sounds are audible. LABS: Her hemoglobin today was 9.0 with hematocrit 27.6. Her BUN is currently 61 and creatinine 6.9. Her sodium remains 128. IMPRESSION: Profound anemia. Possibly from chronic gastrointestinal bleed, further complicated by adrenal insufficiency. She had presented with symptomatic anemia. Needs GI evaluation to rule out GI cause for her anemia. She is scheduled for EGD and colonoscopy. If she can tolerate her for colon prep we will do both, otherwise EGD. I have explained to her the procedure, risks, benefits, alternatives through a printed circuit board assembler who was present at bedside and she communicated with her. I also spoke to her [id number], Radha, on telephone and answered all the pertinent questions. They are in agreement to proceed for the endoscopy tomorrow. Further plans will be made according to the findings. In the meantime, continue to recheck hemoglobin and hematocrit, transfuse as necessary, and will follow. cc: Dony Ramey MD [facility]
[2018-10-24] MEDS ORDERED: GOLYTELY PO ONE (14:00)
[2018-10-24] MEDS: SODIUM CHLORIDE 0.9% INJ SCH (17:31)
[2018-10-24] MEDS ORDERED: LASIX IV ONE (18:06)
--- NOTE | 2018-10-24 18:51 | PROGRESS NOTE ---
DATE: 10/24/2018 SUBJECTIVE: The patient reports overall fine. Denied any fever or chills. Intermittent moderate abdominal pain around the umbilical area. OBJECTIVE: Vital Signs: Temperature 97.9 degrees, heart rate 76, respiratory rate 20, blood pressure 141/56. Oxygen saturation 99% on room air. General: This is a chronically ill-looking 77-year-old female, lying in bed, in no acute distress. HEENT: Head is normocephalic, atraumatic. Neck: No JVD noted. No carotid bruits. No lymphadenopathy. No thyromegaly. Cardiovascular: S1, S2 heard. No murmurs, gallops, or rubs. Regular rate and rhythm. Respiratory: Minimal crackles noted in both pulmonary bases. The patient is not using any accessory muscles or having work of breathing. Abdomen: Soft. There is abdominal wall swelling. Nontender to palpation. Mild pain around the umbilical area. Extremities: No clubbing or cyanosis. Mild edema in both upper and lower extremities. Neurological: Patient is alert and oriented x3. Moves 4 extremities. LABORATORY DATA: White cell count 9.1, hemoglobin 9.0 hematocrit 27.6, platelets 335,000. Sodium 128, creatinine 6.9, potassium 4.4, calcium 7.2. ASSESSMENT AND PLAN: 1. Syncope, multifactorial, secondary to hypotension and severe anemia. Resolved. 2. Chronic kidney disease stage 5. Nephrology following. The patient will need dialysis in the near future. The patient and her family has been informed. We will continue with medical management because she is still having some swelling in the abdominal wall, and also both lower extremities. Will start Lasix on this patient. 3. Anemia of chronic disease. Hemoglobin is 9. After 2 units of blood, we will continue with the same management. 4. Umbilical hernia. The patient has been evaluated by General Surgery, and no surgical approach has been recommended. Help appreciated. 5. Uncontrolled hypertension. Actually, the blood pressure is well-controlled, so I am not planning to restart any blood pressure medications in this patient. 6. Disposition. For evaluation of this anemia of chronic disease, the patient is going to have an EGD and colonoscopy tomorrow, as per Dr. Ramey. 7. I think if that procedure is normal, not showing any major abnormalities, I think this patient can be discharged tomorrow. cc: Bright Pena MD
[2018-10-25] MEDS: PROTONIX IV SCH (04:44)
[2018-10-25] MEDS: SODIUM CHLORIDE 0.9% INJ SCH (04:44)
[2018-10-25 07:29] LABS: EOS# 0.14 X1000 (0.0-0.7); EOS% 1.9 % (0.0-10.0); HEMATOCRIT 29.6 % (37.0-47.0); HEMOGLOBIN 9.7 g/dL (12.0-16.0); LYMPH# 0.84 X1000 (1.2-3.4); LYMPH% 11.3 % (20.5-51.1); MCH 24.6 PG (27-31); MCHC 32.8 g/dL (33-37); MCV 75.1 FL (81-99); MONO# 0.92 X1000 (0.11-0.59); MONO% 12.4 % (1.7-9.3); MPV 9.6 FL (7.4-10.4); NEUT# 5.54 X1000 (1.4-6.5); NEUT% 74.4 % (42.2-75.2); PLT 361 X1000 (130-400); RBC 3.94 XMIL (4.2-5.4); RDW 18.8 % (11.5-14.5); WBC 7.44 X1000 (4.8-10.8)
[2018-10-25 07:58] LABS: CREATININE 6.5 mg/dL (0.5-0.9); POTASSIUM 3.6 mmol/L (3.5-5.1)
[2018-10-25 08:08] LABS: CALCIUM 6.9 mg/dL (8.8-10.2)
[2018-10-25] MEDS: SODIUM BICARBONATE PO SCH ×3 (09:32→19:03)
[2018-10-25] MEDS: LASIX IV SCH ×2 (10:29→21:38)
--- NOTE | 2018-10-25 11:46 | NEPHROLOGY PROGRESS NOTE ---
DATE: 10/25/2018 TIME SEEN: 0640. SUBJECTIVE: Ms. Carlson is resting quietly in bed. Her family is at her bedside. She has had no complaints during the night. OBJECTIVE: Vital signs: Her most recent vital signs, her last temperature 98 degrees, blood pressure 134/51, heart rate is 88, respirations 17. She is on room air. Last recorded saturation 98%. She has had 400 in. She has had 400 out. Family states she has been voiding without difficulty. Lab: Sodium 130, potassium 3.6, chloride 96, CO2 18, BUN 56, creatinine 6.5, glucose 95. Her anion gap is 16. Her calcium is 6.9. White count 7.44, hemoglobin 9.7, hematocrit 29.6, platelet count 361,000. PHYSICAL EXAMINATION: General: This is a 77-year-old female. She is resting quietly, without distress. She appears chronically ill. Skin: Warm and dry. HEENT: Normocephalic, atraumatic. Conjunctivae pale. She has GURPREET. Mucous membranes are dry. Neck : Supple. Trachea midline. No JVD. Cardiovascular: She is regular rate and rhythm. She has an S4 present. Lungs: Clear to auscultation anteriorly. Equal excursion. On room air. Abdomen: She does have some tenderness secondary to a hernia. This is reducible. Genitourinary: Not inspected. Patient has been voiding. Extremities: Have trace edema to 1+. No clubbing or cyanosis. Neurological: She responds appropriately to her family members and sitters at the bedside. ASSESSMENT AND PLAN: 1. Chronic kidney disease stage 5. Patient is not uremic. She has responded nicely to the Kayexalate from yesterday. She has had adequate urine documented. Due to these current findings, no indications for need for dialysis while she is inpatient. Family states that after discharge she is planning a return trip to her home country, where it appears that she will receive appropriate treatment for her renal failure. 2. Electrolytes. The patient does have hyponatremia secondary to #1. Potassium has improved secondary to Kayexalate. 3. Acid-base balance. She has had sodium bicarbonate added to her medications in the last 24 hours. We will monitor. 4. Hypotension. This has improved. 5. Gastrointestinal bleed. The patient is currently being monitored by Dr. Tanvir with plan for an EGD today. She remains NPO. I would like to thank you for allowing us to follow with this patient. Dictated by KAREN Gonzales for Marques Castellanos MD Face to face encounter, data reviewed, discussed with Joaquin Gonzalez on 10/26/18. I agree with the above assessment and plan of care. cc: KAREN Gonzales MD [facility]
[2018-10-25] MEDS ORDERED: CALCIUM GLUCONATE 2 GM in NS 100 ML IV ONE (13:18)
--- NOTE | 2018-10-25 14:21 | PROGRESS NOTE ---
DATE: 10/25/2018 SUBJECTIVE: The patient reports feeling fine. She was able to take all of the preparation for colonoscopy. Still complaining of minimal abdominal pain around the umbilical area. OBJECTIVE: Vital Signs: Temperature 97.6, heart rate 82, respiratory rate 14, blood pressure 168/51, O2 saturation 97% on room air. General examination: This is a chronically ill-looking, 77-year-old female, lying in bed, in no acute distress. HEENT: Head is normocephalic, atraumatic. Neck: No JVD noted. No carotid bruits. No lymphadenopathy. No thyromegaly. Cardiovascular: Minimal crackles noted in both pulmonary bases. Patient not using any accessory muscles or having work of breathing. Abdomen: Soft. There is an abdominal wall bulging noted in the umbilical area. Bowel sounds present. No organomegaly. Extremities: No clubbing, cyanosis. Mild edema in both lower and upper extremities. Neurological: Patient is alert and oriented x3. Moves 4 extremities. LABORATORY DATA: White cell count 7.44, hemoglobin 9.7, hematocrit 29.6, platelets 361,000. Sodium 130, calcium 6.9. ASSESSMENT AND PLAN: 1. Syncope, multifactorial, secondary to hypotension and severe anemia. Resolved completely. 2. Chronic kidney disease stage 5. Nephrology is following this patient. Patient is not a candidate for dialysis at this time but she may be eventually. According to nephrology who is following this patient, the patient is planning a return trip to her country where it appears that she will receive appropriate treatment for this end-stage renal disease. 3. Anemia of chronic disease. Hemoglobin is 9.6. We will continue to monitor. 4. Umbilical hernia. At this point that surgery can be performed as an outpatient. 5. Uncontrolled hypertension. At this point, patient is not requiring any blood pressure medication. We will continue to monitor. 6. Anemia of chronic disease. For further evaluation, GI has been consulted and she is going to undergo EGD and colonoscopy. We will see what it shows. 7. Disposition. I think after EGD is done we can check labs tomorrow she most likely will be ready to be discharged tomorrow. cc: Bright Pena MD
[2018-10-25] MEDS ORDERED: DIPRIVAN 1% ONE (17:33)
[2018-10-25] MEDS ORDERED: XYLOCAINE-MPF 2% ONE (17:53)
[2018-10-25] MEDS: TUMS PO SCH (19:07)
--- NOTE | 2018-10-25 20:04 | OPERATIVE NOTE ---
PROCEDURE DATE: 10/25/2018 PROCEDURE: Is EGD and colonoscopy. PREOP DIAGNOSIS: Anemia. The patient was admitted to the hospital with hemoglobin of 5.6. EGD and colonoscopy was done for diagnostic as well as therapeutic purposes. DESCRIPTION OF PROCEDURE: Informed consent was obtained from the patient through educational interpreter. Procedure, risks, benefits, alternatives were explained in layman's terms. She understood. All the pertinent questions were answered. The patient was brought to the endoscopy unit and was premedicated as per Anesthesia. After adequate sedation while she was lying left lateral position the gastroscope was introduced into the posterior pharynx and advanced under direct vision into the esophagus. Esophagus in its entire length appeared to be normal. No esophagitis, webs, rings, varices were seen. The scope was then passed through the esophagus into the stomach. Stomach was examined both straight and retroflexed view, which revealed normal cardia, fundus, body, and antrum. The scope was then passed through the normal pylorus into the duodenal bulb and then to the second portion of duodenum which appeared to be normal. The scope was then removed. Patient was then repositioned for colonoscopy. Digital rectal exam was performed, which was normal. The scope was then gently introduced into the rectum and advanced under direct vision through the parts of colon all the way up to cecum. The cecum was identified by ileocecal valve and appendiceal orifice. Scope was then passed through the normal ileocecal valve. The scope was withdrawn paying careful attention to details. Preparation was good. The visualized portion of the colon revealed a small nonbleeding AVM in the ascending colon in fact right at the brim of the cecum. Again, it was not bleeding and there was no stigmata of recent bleed. The scope was then withdrawn all the way to the rectum paying attention to details. Preparation was good. Again visualized portion of colon revealed no other pathology except for few small diverticula in the sigmoid colon without any signs of active bleeding or stigmata of recent bleed. Retroflexed view of rectum revealed no pathology either. The scope was then removed. The patient procedure, no complications noted. Patient was then transferred to the recovery area in a stable condition. IMPRESSION: 1. Normal EGD and nonbleeding arterial venous malformation cecum. 2. Diverticulosis. RECOMMENDATION: I did not see any pathology that would explain her anemia except for this could be anemia of chronic disease rather than GI source. At this point no new suggestions except continue to recheck hemoglobin and hematocrit, transfuse as necessary and endoscopic intervention if required for therapeutic purposes. I have explained the findings and plan to the patient's [id number] Radha through the telephone, answered all the pertinent questions. cc: Dony Ramey MD
[2018-10-26] MEDS: PRILOSEC PO SCH (06:46)
[2018-10-26 07:54] LABS: EOS# 0.25 X1000 (0.0-0.7); EOS% 3.3 % (0.0-10.0); HEMATOCRIT 27.8 % (37.0-47.0); HEMOGLOBIN 9.2 g/dL (12.0-16.0); IMM GRAN# 0.02 X1000 (0.0-0.04); IMM GRAN% 0.3 % (0.0-0.5); LYMPH# 1.22 X1000 (1.2-3.4); LYMPH% 16.2 % (20.5-51.1); MCH 24.7 PG (27-31); MCHC 33.1 g/dL (33-37); MCV 74.7 FL (81-99); MONO# 1.06 X1000 (0.11-0.59); MONO% 14.1 % (1.7-9.3); MPV 9.7 FL (7.4-10.4); NEUT# 4.98 X1000 (1.4-6.5); NEUT% 66.1 % (42.2-75.2); PLT 345 X1000 (130-400); RBC 3.72 XMIL (4.2-5.4); RDW 19.2 % (11.5-14.5); WBC 7.53 X1000 (4.8-10.8)
[2018-10-26] MEDS: TUMS PO SCH ×3 (08:14→17:48)
[2018-10-26] MEDS: SODIUM BICARBONATE PO SCH ×3 (08:14→17:48)
[2018-10-26] MEDS: LASIX IV SCH ×2 (08:14→22:03)
[2018-10-26 08:19] LABS: CREATININE 6.8 mg/dL (0.5-0.9); POTASSIUM 3.7 mmol/L (3.5-5.1)
[2018-10-26 09:02] LABS: CALCIUM 6.9 mg/dL (8.8-10.2)
[2018-10-26] MEDS: ZOFRAN IV PRN ×2 (09:03→17:48)
[2018-10-26] MEDS: DILAUDID IV PRN ×2 (09:03→17:48)
[2018-10-26] MEDS ORDERED: CALCIUM GLUCONATE 2 GM in NS 100 ML IV ONE (09:12)
--- NOTE | 2018-10-26 10:33 | Diag Imaging Result Doc PS360 ---
EXAM: ABDOMEN FLAT/UPRIGHT HISTORY: abdominal pain TECHNIQUE: Flat and upright, three views COMPARISON: None. FINDINGS: No free air beneath the diaphragm. There is stool in colon. The bowel loops are not dilated. No organomegaly. No abnormal abdominal calcifications. There is mild scoliosis with degenerative spine changes. IMPRESSION: [id number] constipation. Electronically signed by Alfonso Mason 10/26/2018 10:31 AM
--- NOTE | 2018-10-26 10:41 | PROGRESS NOTE ---
DATE: 10/26/2018 SUBJECTIVE: The patient is complaining of abdominal pain. She has not had a bowel movement in 3 days. She denies having any nausea or vomiting. OBJECTIVE: Vital Signs: Temperature 98.1 degrees, blood pressure 139/68, heart rate 65, respirations 18, O2 saturation 96% on room air. General: This is a chronically ill-appearing elderly female lying in bed in no acute distress. Heart: S1, S2 normal. Lungs : Equal air entry bilaterally. No crackles. No rales. Abdomen: Positive bowel sounds. Soft, nontender, nondistended. Extremities: No edema, no cyanosis. Neurologic: The patient is alert and oriented x3. LABS: White blood cell count 7.5, hemoglobin 9.2, hematocrit 27, platelets 345, 000. Sodium 131, potassium 3.7, chloride 96, CO2 19, BUN 61, creatinine 6.8, glucose 91, calcium 6.9. ASSESSMENT AND PLAN: 1. Severe iron deficiency anemia. The patient had an EGD that did not reveal an active source of bleeding. We will start the patient on iron supplementation. The hemoglobin and hematocrit appear to be stable today. 2. Chronic kidney disease stage 5. Unchanged. The patient's volume status is stable and her acid-base status is as well. She is being followed by Nephrology. 3. Hypertension. Stable. Continue on the current antihypertensive regimen. 4. Chronic hyponatremia. Stable. 5. Metabolic acidosis. The patient is on sodium bicarbonate tablets. 6. Umbilical hernia. The patient's family are requesting to talk with . Will contact him. 7. Disposition. Will plan to discharge the patient home if it is okay with GI and Nephrology. cc: Nicolle Goldman MD [facility]
--- NOTE | 2018-10-26 11:45 | PROGRESS NOTE ---
DATE: 10/26/2018 SUBJECTIVE: Patient had an EGD and colonoscopy on 10/25/2018. Findings showed normal EGD and nonbleeding arterial venous malformation in the cecum, along with diverticulosis. The patient is still complaining of abdominal pain at the umbilical hernia site. They have seen Dr. Rivas prior to admission for plans for surgery that had to be postponed due to her recent hospitalization. She has also had Nephrology consult for chronic kidney disease. Dr. Castellanos is following. OBJECTIVE: Vital Signs: Temperature 98.1 degrees, pulse 65, blood pressure 139/68. General: Patient is awake and alert. She has family at the bedside. I have discussed with them the findings of the EGD and colonoscopy. LABORATORY: Hematology: WBC 7.53 hemoglobin 9.2, hematocrit 27.8, MCV 74.7, platelet 345,000. Chemistry: Sodium 131, potassium 3.7, chloride 96, CO2 19, BUN 61, creatinine 6.8, glucose 91, calcium 6.9. ASSESSMENT AND PLAN: 1. Anemia. EGD and colonoscopy did not show any evidence of active bleeding. Hemoglobin and hematocrit are stable. 2. Chronic kidney disease. Following with Nephrology. 3. Umbilical hernia. Patient had been seen as an outpatient by Dr. Rivas. The family is wanting Dr. Rivas to see the patient while she is in the hospital about plans for future surgery. She continues to complain of abdominal pain at the hernia site. Gastroenterology will continue to follow. Further plans to be made according to her progress. I have discussed this case with Dr. Ramey. Dictated by KAREN Dumont for Dony Ramey MD cc: KAREN Cherry MD
--- NOTE | 2018-10-26 13:13 | NEPHROLOGY PROGRESS NOTE ---
DATE: 10/26/2018 TIME SEEN: 0705. SUBJECTIVE: Ms. Carlson is resting quietly in bed. I have awoken her. She states, per her granddaughter interpreting, that she is feeling better. OBJECTIVE: Vital Signs: Her most recent vital signs, her last temperature 98.1 degrees, blood pressure 135/45, heart rate 79, respirations are 14. She is on room air. Last recorded saturation is 95%. She has had 100 in. She has had 1500 mL out to Santos catheter. Laboratory Data: Sodium is 131, potassium 3.7, chloride is 96, CO2 19, BUN 61, creatinine 6.8, glucose 91, anion gap is 16, calcium is 6.9. Her lipase is 78. White count 7.53, hemoglobin 9.2, hematocrit 27.8, with a platelet count of 345,000. Physical Examination: General: This is a 77-year-old, female. She is resting quietly. She appears chronically ill, though no acute distress. Skin: Warm and dry. HEENT: Normocephalic, atraumatic. Conjunctivae are pale pink. She has GURPREET. Mucous membranes are dry. Neck: Supple. Trachea midline. No JVD. Cardiovascular: Regular rate and rhythm. She has an S4. Lungs: Clear to auscultation bilaterally. Equal excursion. She is on room air. Abdomen: Soft, nontender. Positive bowel sounds. Genitourinary: Not inspected. Adequate urine out. Extremities: Have trace edema. No clubbing or cyanosis. Neurological: Responds appropriately to family members. ASSESSMENT AND PLAN: 1. Chronic kidney disease stage 5. Patient has no uremic symptoms. Her potassium remains stable today. Adequate urine out. No indications for immediate dialysis. Family has discussed possible discharge and travel to her home country. 2. Electrolytes. The patient had mild hyponatremia. This is stable. Potassium has improved. 3. Acid-base balance. She remains on sodium bicarbonate. 4. Gastrointestinal bleed. This is followed by Dr. Ramey and the primary care team. I would like to thank you for allowing us to follow with this patient. Add Tums 2 q AC. OK to discharge. rg Dictated by KAREN Gonzales for Marques Castellanos MD Face to face encounter, data reviewed, discussed with Joaquin Gonzalez on 10/26/18. I agree with the above assessment and plan of care. cc: KAREN Gonzales MD [facility]
--- NOTE | 2018-10-26 18:44 | GENERAL SURGERY PROGRESS NOTE ---
DATE: 10/26/2018 SUBJECTIVE: Ms. Carlson's hernia remains easily reducible. This is something that should be dealt with as an outpatient and I have discussed that with her [id number] who speaks French. She is following up with a fast food cashier. cc: Dante Hamilton MD
[2018-10-27] MEDS: PRILOSEC PO SCH (06:21)
[2018-10-27 07:35] LABS: HEMATOCRIT 26.7 % (37.0-47.0); HEMOGLOBIN 8.9 g/dL (12.0-16.0); MCH 25.4 PG (27-31); MCHC 33.3 g/dL (33-37); MCV 76.3 FL (81-99); MPV 9.9 FL (7.4-10.4); RBC 3.5 XMIL (4.2-5.4); WBC 6.39 X1000 (4.8-10.8)
[2018-10-27 08:13] LABS: CREATININE 6.8 mg/dL (0.5-0.9); PHOSPHORUS 5.5 mg/dL (2.7-4.5)
[2018-10-27 08:24] LABS: CALCIUM 6.6 mg/dL (8.8-10.2)
[2018-10-27] MEDS ORDERED: CALCIUM GLUCONATE 2 GM in NS 100 ML IV ONE (08:45)
[2018-10-27] MEDS ORDERED: LASIX IV SCH (09:00)
[2018-10-27] MEDS: SODIUM BICARBONATE PO SCH ×2 (10:09→12:49)
[2018-10-27] MEDS: TUMS PO SCH ×2 (10:11→12:49)
[2018-10-27 12:36] VITALS: BP 188/68
--- NOTE | 2018-10-27 13:11 | NEPHROLOGY PROGRESS NOTE ---
DATE: 10/27/2018 TIME SEEN: 729 SUBJECTIVE: Ms. Carlson is resting quietly. We have actually just woken her up this morning. She has no complaints. OBJECTIVE: Vital signs: Her temperature 98 degrees, blood pressure 153/64, heart rate 82 respirations 16, she is on room air, last recorded saturation 94%. Intake and Output: She has had 120 in. She has had 950 out to Santos catheter. LABORATORY DATA: Her most recent laboratories: Her sodium is 129, potassium 4 , chloride 95, CO2 of 20, BUN 57, creatinine 6.8, her glucose is 110, her anion gap is 14, her calcium is 6.6, phosphorus 5.5 with an albumin of 2, her corrected calcium is 8.2. The patient' s white count is 6.39, hemoglobin 8.9, hematocrit 26.7, she has a platelet count of 336,000. PHYSICAL EXAMINATION: General: This is a 77-year-old female. She is resting quietly in bed. She appears chronically ill, though in no acute distress. Skin: Warm and dry. HEENT: Normocephalic, atraumatic. Conjunctivae pale pink. GURPREET. Mucous membranes are dry. Neck: Supple. Trachea midline. No JVD. Cardiovascular: Regular rate and rhythm. Without murmur or gallop. Lungs: Clear to auscultation bilaterally with equal excursion on room air. Abdomen: Soft. Nontender today. Positive bowel sounds. Genitourinary: Not inspected. She has had adequate urine output documented per Santos catheter. We will remove her Santos catheter this morning. Extremities: The patient does have trace pretibial edema to 1+ today. We will add some Lasix to her regimen. Neurological: Responds appropriately to family in her [place] tongue. ASSESSMENT AND PLAN: 1. Chronic kidney disease, stage 5D. Patient has yet to be on hemodialysis. She has no uremic symptoms. Her potassium has been stable. No indications for immediate dialysis. 2. Electrolytes. Hyponatremia secondary to #1. Her hyperkalemia has improved. 3. Acid-base balance. She remains on sodium bicarbonate. 4. Increased edema. We will put her on some Lasix today and monitor. 5. Gastrointestinal bleed. This is followed by Dr. Ramey and the primary care team. I would like to thank you for allowing us to follow with this patient. Dictated by KAREN Gonzales for Marques Castellanos MD Face to face encounter, data reviewed, discussed with Joaquin Gonzalez on 10/27/18. I agree with the above assessment and plan of care. cc: KAREN Gonzales MD [facility]
--- NOTE | 2018-10-27 13:25 | GENERAL SURGERY PROGRESS NOTE ---
DATE: 10/27/2018 SUBJECTIVE: Doing okay. No pain and her hernia remains reducible. She is tolerating her diet. Bowels are functioning. No fevers. No tachycardia. OBJECTIVE: Blood pressure 188/68, oxygen saturation 100%. General: She is alert. She is eating lunch. Cardiovascular: Normal rate. Abdomen: Soft. Hernia is reducible with no overlying skin changes. Integument: Warm, dry. I reviewed her labs. ASSESSMENT AND PLAN: This is a 77-year-old female with a longstanding incisional hernia at her umbilicus. She was initially scheduled for repair but given her renal insufficiency, her outsole cementer has advised against this. I will be happy to see her in my office and we can arrange for elective repair at some point in the future. Otherwise, it has remained reducible and she is not obstructed. cc: Marc Rivas MD
--- NOTE | 2018-10-27 13:47 | PROGRESS NOTE ---
DATE: 10/27/2018 SUBJECTIVE: The patient was resting. Her family is at the bedside. She did arouse easily. She currently denies abdominal pain. The patient had an EGD and colonoscopy on 10/25/2018. Findings showed normal EGD and a nonbleeding arteriovenous malformation in the cecum along with diverticulosis. Hemoglobin and hematocrit today 8.9 and 26.7. OBJECTIVE: Vital Signs: Temperature 97.3 degrees, pulse 74, respirations 13, blood pressure 188/68. General: Patient is awake and alert, in no acute distress. LABORATORY DATA: Hematology: WBC 6.39, hemoglobin 8.9, hematocrit 26.7, MCV 76.3, platelets 336,000. Chemistry: Sodium 129, potassium 4.0, chloride 95, CO2 20, BUN 57, creatinine 6.8, glucose 110, calcium 6.6, phosphorus 5.5, albumin 2.0. ASSESSMENT AND PLAN: 1. Anemia. Patient had EGD and colonoscopy that did not show any evidence of active bleeding. Anemia could be related to chronic disease. 2. Chronic kidney disease. Following with Nephrology. 3. Umbilical hernia. Patient has been seen by Dr. Rivas. He recommend she follow up with him as an outpatient to schedule future elective hernia repair when her other medical problems have stabilized. I have recommended patient follow up with us in the office as needed. I have given them a contact card to call if needed. I have discussed this case with Dr. Ramey. Dictated by KAREN Dumont for Dony Ramey MD cc: KAREN Cherry MD
[2018-10-27] MEDS ORDERED: FLU VACCINE IM ONE (14:11)
[2018-10-27] MEDS ORDERED: PNEUMOVAX 23 IM ONE (14:13)
--- NOTE | 2018-11-07 09:28 | DISCHARGE SUMMARY ---
ADMISSION DATE: 10/21/2018 DISCHARGE DATE: 10/27/2018 FINAL DISCHARGE DIAGNOSES: 1. Syncope. 2. Severe iron deficiency anemia. 3. Chronic kidney disease stage 5. 4. Umbilical hernia. 5. Malignant hypertension. 6. Chronic hyponatremia. 7. Metabolic acidosis. CONSULTATIONS REQUESTED DURING THIS HOSPITAL STAY: 1. General Surgery consultation with Dr. Hamilton. 2. Nephrology consultation with Dr. Castellanos. 3. GI consultation with Dr. Ramey. PROCEDURES: EGD and colonoscopy performed on 10/25/2018 that revealed normal EGD with nonbleeding AVMs in the cecum. Diverticulosis. HOSPITAL COURSE: Ms. Carlson as a 77-year-old female with chronic kidney disease stage 5, who presented to the ER after having a syncopal episode. On admission, the patient was noted to be hypotensive and severely anemic. There was concern about a GI bleed. The CT of the chest, abdomen, and pelvis was done in the ER that revealed small pleural effusions as well as a small amount of body wall edema and ascites. The patient was admitted to the hospitalist service. GI and nephrology were consulted. The patient also had an echocardiogram done that revealed an ejection fraction of 60% with a with preserved right ventricular systolic function. No pericardial effusion was noted. The patient was seen by the cullet crusher who recommended EGD with colonoscopy. The procedure was performed on 10/25/2018 and it was noted that the EGD was normal and there was a nonbleeding AVM found in the cecum as well as well as diverticulosis. No active bleeding was seen during this procedure. The patient was also noted to have an umbilical hernia, so general surgery was consulted. The general surgeon recommended that the patient follow up as outpatient for discussion about repair. The patient continued to improve clinically and was cleared for discharge on 10/27/2018. DISCHARGE MEDICATIONS: 1. Calcium carbonate 500 mg p.o. 3 times a day. 2. Sodium bicarbonate 1300 mg p.o. 3 times a day. 3. Ranitidine 150 mg p.o. twice a day. DISCHARGE DIET: Renal diet, low-sodium diet. ACTIVITY: As tolerated. FOLLOWUP INSTRUCTIONS: 1. The patient will need to followup with Dr. Castellanos as scheduled by his clinic. 2. The patient will need to followup with Dr. Ramey as scheduled by his clinic. 3. The patient will followup with Dr. Rivas to discuss repair of her umbilical hernia. cc: Nicolle Goldman MD
== END 2018-10-27 16:21 | disposition home or self-care (01) | DRG 812 ==
LOC: ED 09:54 → SUATTDRO 17:43 → EDIPHOLD 17:43 → 3N 10-22 15:39
PROVIDERS: ATTEND Internal Medicine
CPT/HCPCS: 36430; 51702; 70450; 71010; 71045; 71250; 72125; 74019; 74020; 74176; 76770; 80048; 80053; 80069; 80101; 80301; 80307; 80324; 80345; 80346; 80353; 80358; 80361; 80365; 81001; 82150; 82272; 82607; 82728; 82746; 83540; 83550; 83690; 83880; 83992; 84466; 84484; 85014; 85018; 85025; 85027; 85610; 86850; 86900; 86901; 86920; 87275; 87276; 87804; 90686; 90732; 93005; 93306; 93308; 93880; 96374; 96375; 96376; 99285; 99291; A9270; C8929; C9113; G0431; G0434; G0479; G0480; J0610; J1170; J1756; J1940; J2270; J2310; J2405; J7030; J7050; P9016; Q9957; S0164